=== PATIENT | female | born 1975 | race Caucasian/White ===

== ENCOUNTER 2021-07-13 15:07 | Emergency (ER) | payer SELFPAY ==
[~2021-07-13] VITALS: Ht 170.2 cm; Wt 99.8 kg
[2021-07-13 15:09] VITALS: BP 123/68
--- NOTE | 2021-07-13 16:16 | NUR ---
PATIENT ELOPED FROM FACILITY. DISCHARGE INSTRUCTIONS NOT GIVEN TO PATIENT. DR. ROTHMAN NOTIFIED.
== END 2021-07-13 16:16 | disposition left against medical advice (07) ==
LOC: MED 15:07
DX: R05.9 Cough, unspecified (principal); R10.10 Upper abdominal pain, unspecified; Z98.84 Bariatric surgery status
CPT/HCPCS: 99283